=== PATIENT | male | born 2000 | race Caucasian/White ===

== ENCOUNTER 2018-08-23 19:44 | Emergency (ER) | payer OTHER ==
--- NOTE | 2018-08-23 22:43 | ER Document Report ---
ED General - General Chief Complaint: Low Back Pain Stated Complaint: BACK PAIN Time Seen by Provider: 08/23/18 21:30 Notes: 17-year-old male presents to the emergency department after sustaining an injury during [employer] training. He was thrown to the ground and developed sharp pain in his back but continued training for the rest of the day. He had some left leg numbness and tingling and sought treatment at the [facility] enter. They gave him a shot of Toradol and a dose of Valium which she reported no relief. He was also given Flexeril for which she said it just knocked him out and when he woke up the pain was still there. He complains of paresthesia in his left leg that is intermittent but consistent for the last couple of days, denies urinary retention, denies saddle paresthesia, denies bony midline tenderness. No fevers or infectious symptoms. TRAVEL OUTSIDE OF THE [place] IN LAST 30 DAYS: No - Related Data Allergies/Adverse Reactions: No Known Allergies Allergy (Unverified 08/23/18 19:55) Past Medical History - General Information source: Patient - Social History Smoking Status: Never Smoker Frequency of alcohol use: None Drug Abuse: None Family History: Reviewed & Not Pertinent Patient has suicidal ideation: No Patient has homicidal ideation: No Renal/ Medical History: Denies: Hx Peritoneal Dialysis Review of Systems - Review of Systems Constitutional: See HPI EENT: No symptoms reported Cardiovascular: See HPI Respiratory: See HPI Gastrointestinal: No symptoms reported Genitourinary: See HPI Male Genitourinary: No symptoms reported Musculoskeletal: No symptoms reported Skin: No symptoms reported Hematologic/Lymphatic: No symptoms reported Neurological/Psychological: See HPI Physical Exam - Vital signs Vitals: Temp Pulse Resp BP Pulse Ox 98.1 F 69 14 129/70 H 100 08/23/18 19:59 08/23/18 19:59 08/23/18 19:59 08/23/18 19:59 08/23/18 19:59 - Notes Notes: Reviewed vital signs and nursing note as charted by RN. CONSTITUTIONAL: Well-appearing, well-nourished, acting appropriately for age HEAD: Normocephalic, atraumatic, no swelling EYES: PERRL, Conjunctivae clear, no drainage, EOMI, no scleral icterus ENT: External ears without lesions, External auditory canal is patent, airway patent, mucous membranes pink and moist NECK: Supple, no cervical lymphadenopathy, no masses CARD: Regular rate and rhythm, no murmurs, no rubs, no gallops, capillary refill < 2 seconds, symmetric pulses RESP: The lungs are clear to auscultation bilaterally, no wheezing, no rales, no rhonchi. Respiratory rate and effort are normal, normal chest excursion. No respiratory distress, no retractions, no stridor, no nasal flaring, no accessory muscle use. ABD/GI: Normal bowel sounds, non-distended, soft, non-tender, no rebound, no guarding, no palpable organomegaly EXT: Normal ROM in all joints, non-tender to palpation, no effusions, no edema BACK: Tenderness to palpation over L2-L3 area that is paraspinal. He does have some midline tenderness but it is worse when moving laterally. No edema, no ecchymosis. SKIN: Normal color for age and race, warm, dry, good turgor, no acute lesions noted NEURO: No facial asymmetry, moves all extremities equally, motor and sensory function intact Course - Re-evaluation Re-evalutation: 08/23/18 22:43 Well-appearing 17-year-old Ronna presents to the emergency department after an injury during martial arts training after he was slammed on his back. This happened 3 days ago and he was seen at outside hospital and was given a shot of Toradol, some Valium when which she reported no relief. He has been c onsistently taking Motrin 800 mg 3 times a day for the last couple He was told in his discharge instructions if he gets any numbness or weakness in his legs to return to the emergency department. He is concerned because symptoms have not improved over the last couple of days. On physical exam he has a normal gait is able to walk on his toes. He does have tenderness to palpation along the left paraspinal muscle in the level of L2-L3 but states the pain has migrated medially and when pressing up on his spine there is some tenderness. It is unclear if this is bony tenderness or muscle. Discussed with Dr. Morrison and although the literature is divided with respect to steroid use it is reasonable to give him a short burst of prednisone for 3 days. Hopefully this will help her symptoms. Plan is to also place a Lidoderm Derm patch on his back. Discussed imaging as this is a traumatic injury but patient declined. The patient if he has any saddle paresthesia or any urinary retention to immediately return to the emergency department of this is a surgical emergency. Patient is stable for discharge. 08/23/18 22:55 - Vital Signs Vital signs: Temp Pulse Resp BP Pulse Ox 98.1 F 69 14 129/70 H 100 08/23/18 19:59 08/23/18 19:59 08/23/18 19:59 08/23/18 19:59 08/23/18 19:59 Discharge - Discharge Clinical Impression: Back pain due to injury Condition: Good Disposition: HOME, SELF-CARE Instructions: Ice Packs ([facility]), Low Back Pain ([facility]), Warm Packs ([facility]) Additional Instructions: You have been seen in the Emergency Department (ED) today for back pain. Your workup and exam have not shown any acute abnormalities and you are likely suffering from muscle strain or possible problems with your discs, but there is no treatment that will fix your symptoms at this time. Please take the naproxen that has been prescribed as directed. You should also purchase a local lidocaine cream such as "aspercreme with lidocaine" and use per bottle instructions to the affected area. Apply heat to the area as often as you are able. Continue to keep active and avoid prolonged periods of bed rest. Please follow up with your doctor as soon as possible regarding today's ED visit and your back pain. Return to the ED for worsening back pain, fever, or if you develop either (1) an inability to urinate or have bowel movements, or (2) loss of your ability to control your bathroom functions (if you start having "accidents"), or if you develop other new symptoms that concern you.concern you.
[2018-08-23] MEDS ORDERED: LIDOCAINE 5% (700 MG) TRANSDERMAL ADH..PATCH TP ONE (22:53)
[2018-08-23] MEDS ORDERED: PREDNISONE 20 MG TABLET PO ONE (22:54)
[2018-08-23 23:08] VITALS: BP 119/64
== END 2018-08-23 23:09 | disposition home or self-care (01) ==
LOC: ER 19:44
DX: S39.92XA Unspecified injury of lower back, initial encounter (principal); Y93.75 Activity, martial arts; Y99.0 Civilian activity done for income or pay
CPT/HCPCS: 99283; J7512